=== PATIENT | male | born 1960 | race African-American/Black ===

== ENCOUNTER 2024-07-02 22:16 | Emergency (ER) | payer OTHER ==
[~2024-07-02] VITALS: Ht 180.3 cm; Wt 180.0 kg
[2024-07-02 22:26] VITALS: BP 180/74; PULSE 79; RESP 18; TEMP 37.1; O2SAT 97
[2024-07-03] MEDS: LIDOCAINE HCL 1% 20ML VIAL INFIL ONE (04:34)
[2024-07-03] MEDS: TRANEXAMIC ACID 1,000MG/10ML IV ONE (05:21)
[2024-07-03] MEDS ORDERED: LIDOCAINE HCL 1% 20ML VIAL INFIL NR (05:30)
== END 2024-07-03 07:08 | disposition home or self-care (01) ==
LOC: ER 22:16
DX: I83.891 Varicose veins of right lower extremity with other complications (principal); E11.9 Type 2 diabetes mellitus without complications; I11.0 Hypertensive heart disease with heart failure; I50.9 Heart failure, unspecified
CPT/HCPCS: 96374; 99283